=== PATIENT | female | born 1950 ===

== ENCOUNTER 2025-06-10 06:09 | Day surgery (SDC) | payer MEDICARE, OTHER, SELFPAY ==
[2025-06-10 08:15] VITALS: BMI 30.7
[2025-06-10 08:16] VITALS: BP 138/79; BMI 30.7
[2025-06-10 08:26] LABS: Glucose - Point of Care 150 mg/dl (70-99)
[2025-06-10 10:29] VITALS: BP 140/79
[2025-06-10 10:30] VITALS: BP 101/89
[2025-06-10 10:44] LABS: Glucose - Point of Care 157 mg/dl (70-99)
[2025-06-10 10:46] VITALS: BP 146/78
[2025-06-10 11:00] VITALS: BP 147/72
== END 2025-06-10 11:15 | disposition home or self-care (01) ==
LOC: SDS 06:09
PROVIDERS: ATTENDING PHYSICIAN Internal Medicine Gastroenterology
DX: K86.2 Cyst of pancreas (principal); K80.20 Calculus of gallbladder without cholecystitis without obstruction; K31.7 Polyp of stomach and duodenum; K86.9 Disease of pancreas, unspecified; K31.89 Other diseases of stomach and duodenum
CPT/HCPCS: 43238; 43251; 82962; 88173; 88305